=== PATIENT | female | born 1965 | race African-American/Black ===

== ENCOUNTER 2017-09-17 18:28 | Inpatient (IN) | payer MEDICAID, OTHER ==
[~2017-09-17] VITALS: Ht 160 cm; Wt 155.1 kg
[~2017-09-17 18:28] MED LIST: ASPI-1159 PO; COLACE PO; LISI-604 PO; OMEP40CA34 PO; SITA100T11 PO
[2017-09-17 19:15] LABS: CLARITY URINE CLEAR (CLEAR); COLOR URINE YELLOW (YELLOW); KETONES URINE 1+ (NEGATIVE); LEUKOCYTE ESTERASE URINE NEGATIVE (NEGATIVE); NITRITE URINE NEGATIVE (NEGATIVE); OCCULT BLOOD URINE NEGATIVE (NEGATIVE); PROTEIN URINE NEGATIVE (NEGATIVE); SPECIFIC GRAVITY URINE 1.014 (1.005-1.030); UROBILINOGEN URINE 0.2 E.U./dL (0.2-1.0)
[2017-09-17 19:29] LABS: BASOPHILS % 0.5 % (0.0-2.0); EOSINOPHILS % 0.3 % (0.0-5.0); HEMATOCRIT. 41.3 % (36.0-48.0); HEMOGLOBIN. 13.4 g/dL (12.0-16.0); LYMPHOCYTES % 10.9 % (20.0-50.0); MEAN CORPUSCULAR HEMOGLOBIN 25.8 pg (28.0-32.0); MEAN CORPUSCULAR VOLUME 79.7 fL (81.0-99.0); MEAN PLATELET VOLUME 9.8 fl (7.4-10.4); MONOCYTES % 3.3 % (2.0-8.0); PLATELET 301 x1000/uL (130-400); RED BLOOD CELL COUNT 5.18 mill/uL (4.2-5.4); RED CELL DISTRIBUTION WIDTH 13.9 % (11.6-14.6)
[2017-09-17 19:33] LABS: INR 1.1; PROTHROMBIN TIME 11.3 sec (9.4-11.6)
[2017-09-17 19:36] LABS: HCG SCREEN NEGATIVE
[2017-09-17 19:40] LABS: CHLORIDE 98 mEq/L (98-107)
[2017-09-17] MEDS ORDERED: SODIUM CHLORIDE 0.9% 1,000 ML IV ONE (19:50)
[2017-09-17] MEDS ORDERED: MORPHINE SULFATE 4 MG/ML CPJ (NOT FOR IM USE) IV STA (19:50)
[2017-09-17] MEDS ORDERED: ONDANSETRON HCL 4MG/2ML INJ IV STA (19:50)
[2017-09-17] MEDS ORDERED: PANTOPRAZOLE SODIUM 40 MG/VIAL IV ONE (20:00)
[2017-09-17] MEDS ORDERED: IOHEXOL-300 100 ML BOTTLE ONE (21:10)
[2017-09-17] MEDS ORDERED: KETOROLAC 30MG/ML VIAL IV PRN (23:15)
[2017-09-17] MEDS ORDERED: ONDANSETRON HCL 4MG/2ML INJ IV PRN (23:15)
[2017-09-17] MEDS ORDERED: CLONIDINE 0.1MG TABLET PO PRN (23:15)
[2017-09-17] MEDS ORDERED: ENOXAPARIN 40MG/0.4ML SYR SUBCUT SCH (23:15)
[2017-09-17] MEDS ORDERED: MAGNESIUM/ALUMINUM HYDROXIDE/SIMETHICONE 30ML UDC PO PRN (23:15)
[2017-09-18 02:30] VITALS: BP 117/53
[2017-09-18] MEDS: SODIUM CHLORIDE 0.9% 1,000 ML IV SCH ×2 (03:09→17:23)
[2017-09-18 04:00] VITALS: BP 117/53
[2017-09-18] MEDS ORDERED: METF-414 PO (04:48)
[2017-09-18] MEDS ORDERED: GLIP10TA10 PO (04:48)
[2017-09-18] MEDS: PIPERACILLIN/TAZ 3.375G PREMIX 50 ML IV SCH ×3 (05:36→23:04)
[2017-09-18 07:12] LABS: BASOPHILS % 0.5 % (0.0-2.0); EOSINOPHILS % 1.9 % (0.0-5.0); HEMATOCRIT. 36.3 % (36.0-48.0); HEMOGLOBIN. 11.7 g/dL (12.0-16.0); LYMPHOCYTES % 32.1 % (20.0-50.0); MEAN CORPUSCULAR HEMOGLOBIN 25.7 pg (28.0-32.0); MEAN CORPUSCULAR VOLUME 79.5 fL (81.0-99.0); MEAN PLATELET VOLUME 9.7 fl (7.4-10.4); MONOCYTES % 6.4 % (2.0-8.0); NEUTROPHILS % 59.1 % (40.0-76.0); PLATELET 275 x1000/uL (130-400); RED BLOOD CELL COUNT 4.57 mill/uL (4.2-5.4); RED CELL DISTRIBUTION WIDTH 14.1 % (11.6-14.6)
[2017-09-18 07:55] LABS: CHLORIDE 99 mEq/L (98-107)
[2017-09-18 08:00] VITALS: BP 116/50
[2017-09-18 08:06] LABS: CREATINE KINASE 152 IU/L (26-192); CREATINE KINASE MB FRACTION 1.7 ng/mL (0.5-3.6); HDL CHOLESTEROL 33 mg/dL (40-59); LDL CHOLESTEROL 128 mg/dL (5-100)
[2017-09-18] MEDS ORDERED: DEXTROSE 50% WATER 50ML SYRINGE IV PRN (11:30)
[2017-09-18] MEDS: ENOXAPARIN 40MG/0.4ML SYR SUBCUT SCH ×2 (11:33→20:35)
[2017-09-18 12:00] VITALS: BP 119/68
[2017-09-18 12:05] LABS: *AMPHETAMINES SCREEN URINE NEGATIVE (NEGATIVE); *BARBITURATES SCREEN URINE NEGATIVE (NEGATIVE); *BENZODIAZEPINES SCREEN URINE NEGATIVE (NEGATIVE); *COCAINE SCREEN URINE NEGATIVE (NEGATIVE); METHADONE URINE SCREEN NEGATIVE (NEGATIVE); OPIATES URINE SCREEN NEGATIVE (NEGATIVE); PHENCYCLIDINE URINE SCREEN NEGATIVE (NEGATIVE)
[2017-09-18 12:10] LABS: CANNABINOID URINE SCREEN NEGATIVE (NEGATIVE)
[2017-09-18] MEDS: BLOOD SUGAR DIAGNOSTIC STRIP TEST SCH ×3 (12:14→20:35)
[2017-09-18] MEDS: INSULIN LISPRO 100 UNITS/ML SUBCUT SCH ×3 (13:16→21:05)
[2017-09-18 16:00] VITALS: BP 116/53
[2017-09-18 16:55] LABS: CREATINE KINASE 155 IU/L (26-192)
[2017-09-18 16:56] LABS: CREATINE KINASE MB FRACTION 1.2 ng/mL (0.5-3.6)
[2017-09-18] MEDS: ACETAMINOPHEN 325MG TABLET PO PRN ×2 (17:13→22:57)
[2017-09-18 20:00] VITALS: BP 148/69
[2017-09-18] MEDS ORDERED: ATORVASTATIN CALCIUM 10MG TABLET PO SCH (21:00)
[2017-09-18] MEDS: IPRATROPIUM/ALBUTEROL 0.5-3(2.5)MG/3ML NEB INH PRN (21:14)
[2017-09-19] VITALS (7 sets, daily range): BP systolic 117–168; BP diastolic 67–83
[2017-09-19] MEDS: SODIUM CHLORIDE 0.9% 1,000 ML IV SCH (02:30)
[2017-09-19] MEDS: PIPERACILLIN/TAZ 3.375G PREMIX 50 ML IV SCH ×2 (06:33→14:51)
[2017-09-19] MEDS: BLOOD SUGAR DIAGNOSTIC STRIP TEST SCH ×3 (06:41→17:46)
[2017-09-19 06:43] LABS: BASOPHILS % 0.3 % (0.0-2.0); EOSINOPHILS % 2.1 % (0.0-5.0); HEMATOCRIT. 35.3 % (36.0-48.0); HEMOGLOBIN. 11.4 g/dL (12.0-16.0); MEAN CORPUSCULAR HEMOGLOBIN 25.6 pg (28.0-32.0); MEAN CORPUSCULAR VOLUME 79.5 fL (81.0-99.0); MEAN PLATELET VOLUME 9.8 fl (7.4-10.4); MONOCYTES % 6.8 % (2.0-8.0); NEUTROPHILS % 57.8 % (40.0-76.0); PLATELET 259 x1000/uL (130-400); RED BLOOD CELL COUNT 4.44 mill/uL (4.2-5.4)
[2017-09-19 07:10] LABS: CHLORIDE 101 mEq/L (98-107)
[2017-09-19] MEDS: INSULIN LISPRO 100 UNITS/ML SUBCUT SCH ×3 (08:49→17:31)
[2017-09-19] MEDS: ENOXAPARIN 40MG/0.4ML SYR SUBCUT SCH (08:52)
[2017-09-19] MEDS: IPRATROPIUM/ALBUTEROL 0.5-3(2.5)MG/3ML NEB INH PRN (17:57)
== END 2017-09-19 19:19 | disposition home or self-care (01) | DRG 249 ==
LOC: ER 18:28 → 6EST 22:54 → CANRESERV 23:19 → ENRESERV 23:19 → EDBEDREQSVC 23:25 → ENRESERV 09-18 00:01
PROVIDERS: ADMIT Internal Medicine; ATTEND Internal Medicine
DX: A08.4 Viral intestinal infection, unspecified (principal); Z68.44 Body mass index [BMI] 60.0-69.9, adult; I10 Essential (primary) hypertension; E66.01 Morbid (severe) obesity due to excess calories; E78.00 Pure hypercholesterolemia, unspecified; K43.9 Ventral hernia without obstruction or gangrene; E11.9 Type 2 diabetes mellitus without complications; J45.909 Unspecified asthma, uncomplicated; Z79.82 Long term (current) use of aspirin; Z79.84 Long term (current) use of oral hypoglycemic drugs; Z79.899 Other long term (current) drug therapy; Z90.49 Acquired absence of other specified parts of digestive tract; Z88.8 Allergy status to other drugs, medicaments and biological substances; Z98.891 History of uterine scar from previous surgery
CPT/HCPCS: 36415; 74177; 78227; 80048; 80061; 80305; 82550; 82553; 82962; 83605; 84443; 84484; 84703; 93005; 93970; 94640; 94664; 96361; 96374; 96375; 99285; A9537; C1893; C9113; J1650; J1815; J1885; J2270; J2405; J2543; J7030; J7620; Q9967

== ENCOUNTER 2018-03-14 01:41 | Emergency (ER) | payer OTHER ==
[~2018-03-14] VITALS: Ht 160 cm; Wt 172.7 kg
[~2018-03-14 01:41] MED LIST changes: +GLIP10TA10 PO; +METF500T6 PO
[2018-03-14] MEDS ORDERED: METOCLOPRAMIDE HCL 10MG/2ML VIAL IV STA (02:23)
[2018-03-14] MEDS ORDERED: KETOROLAC 30MG/ML VIAL IV STA (02:23)
[2018-03-14 02:57] LABS: BASOPHILS % 0.9 % (0.0-2.0); EOSINOPHILS % 0.4 % (0.0-5.0); HEMATOCRIT. 44.5 % (36.0-48.0); HEMOGLOBIN. 14.4 g/dL (12.0-16.0); LYMPHOCYTES % 15.6 % (20.0-50.0); MEAN CORPUSCULAR VOLUME 80.2 fL (81.0-99.0); MEAN PLATELET VOLUME 9.9 fl (7.4-10.4); MONOCYTES % 3.2 % (2.0-8.0); NEUTROPHILS % 79.9 % (40.0-76.0); PLATELET 283 x1000/uL (130-400); RED BLOOD CELL COUNT 5.54 mill/uL (4.2-5.4)
[2018-03-14 03:05] LABS: CHLORIDE 97 mEq/L (98-107); PROTHROMBIN TIME 10.5 sec (9.1-11.1)
[2018-03-14 03:14] LABS: BETA HYDROXYBUTYRATE 0.7 mMol/L (0.0-0.3)
[2018-03-14 03:52] LABS: CLARITY URINE CLEAR (CLEAR); COLOR URINE YELLOW (YELLOW); KETONES URINE 2+ (NEGATIVE); LEUKOCYTE ESTERASE URINE NEGATIVE (NEGATIVE); NITRITE URINE NEGATIVE (NEGATIVE); OCCULT BLOOD URINE NEGATIVE (NEGATIVE); PH URINE 6.5 (4.5-8.0); PROTEIN URINE TRACE (NEGATIVE); SPECIFIC GRAVITY URINE 1.037 (1.005-1.030); UROBILINOGEN URINE 0.2 E.U./dL (0.2-1.0)
[2018-03-14] MEDS ORDERED: SODIUM CHLORIDE 0.9% 1,000 ML IV NR (04:45)
[2018-03-14] MEDS: INSULIN LISPRO 100 UNITS/ML SUBCUT NR ×2 (05:34→05:45)
[2018-03-14] MEDS ORDERED: IOHEXOL-300 100 ML BOTTLE ONE (07:42)
[2018-03-14 08:15] VITALS: BP 177/87
== END 2018-03-14 08:21 | disposition home or self-care (01) ==
LOC: ER 02:00 → CANBEDREQ 17:34
DX: E11.43 Type 2 diabetes mellitus with diabetic autonomic (poly)neuropathy (principal); K31.84 Gastroparesis; E11.65 Type 2 diabetes mellitus with hyperglycemia; K42.9 Umbilical hernia without obstruction or gangrene; Z79.4 Long term (current) use of insulin; E66.01 Morbid (severe) obesity due to excess calories; Z68.44 Body mass index [BMI] 60.0-69.9, adult; Z88.8 Allergy status to other drugs, medicaments and biological substances; Z79.899 Other long term (current) drug therapy
CPT/HCPCS: 36415; 74177; 80053; 81003; 82010; 82962; 83690; 85025; 85610; 93005; 96361; 96372; 96374; 96375; 99285; J1815; J1885; J2765; Q9967; Z7610

== ENCOUNTER 2018-12-17 23:42 | Emergency (ER) | payer OTHER ==
[~2018-12-17] VITALS: Ht 160 cm; Wt 172.7 kg
[~2018-12-17 23:42] MED LIST changes: +METF-414 PO; -METF500T6 PO
[2018-12-18] MEDS ORDERED: KETOROLAC 30MG/ML VIAL IV STA (01:56)
[2018-12-18] MEDS ORDERED: ENALAPRIL 2.5MG/2ML VIAL 2ML IV ONE (02:00)
[2018-12-18 02:14] LABS: EOSINOPHILS % 1.7 % (0.0-5.0); HEMATOCRIT. 44.4 % (36.0-48.0); HEMOGLOBIN. 14.8 g/dL (12.0-16.0); MEAN CORPUSCULAR HEMOGLOBIN 26.9 pg (28.0-32.0); MEAN CORPUSCULAR VOLUME 80.6 fL (81.0-99.0); MEAN PLATELET VOLUME 10.9 fl (7.4-10.4); MONOCYTES % 4.1 % (2.0-8.0); NEUTROPHILS % 64.2 % (40.0-76.0); PLATELET 267 x1000/uL (130-400); RED BLOOD CELL COUNT 5.51 mill/uL (4.2-5.4); RED CELL DISTRIBUTION WIDTH 13.6 % (11.6-14.6)
[2018-12-18 02:19] LABS: CHLORIDE 99 mEq/L (98-107)
[2018-12-18 02:27] LABS: BETA HYDROXYBUTYRATE 0.3 mMol/L (0.0-0.3)
[2018-12-18] MEDS ORDERED: LORAZEPAM 2MG/ML CPJ IV ONE (06:00)
[2018-12-18 10:41] VITALS: BP 168/95
== END 2018-12-18 10:45 | disposition home or self-care (01) ==
LOC: ER 23:42
DX: I10 Essential (primary) hypertension (principal); M54.2 Cervicalgia; M25.511 Pain in right shoulder
CPT/HCPCS: 36415; 71045; 72125; 80053; 81025; 82010; 82962; 84484; 85025; 93005; 96374; 96375; 99284; J1885; J2060; J3490

== ENCOUNTER 2018-12-29 00:39 | Emergency (ER) | payer OTHER ==
[~2018-12-29] VITALS: Ht 160 cm; Wt 172.7 kg
[2018-12-29] MEDS ORDERED: IBUPROFEN 600MG TABLET PO ONE (02:30)
[2018-12-29 03:28] VITALS: BP 178/90
[2018-12-29] MEDS ORDERED: PENICILLIN V POTASSIUM 250MG TABLET PO SCH (06:00)
== END 2018-12-29 03:28 | disposition home or self-care (01) ==
LOC: ER 00:39
DX: K04.7 Periapical abscess without sinus (principal); I10 Essential (primary) hypertension
CPT/HCPCS: 99283

== ENCOUNTER 2023-04-20 02:46 | Emergency (ER) | payer OTHER ==
[~2023-04-20] VITALS: Ht 160 cm; Wt 150.0 kg
[~2023-04-20 02:46] MED LIST changes: +ALBU05 NEB; -ASPI-1159 PO; +ASPI-1497 MT; +ASPI-1497 PO; +BLOO1KIT74 TP; +CLON0.1T PO; +DILT60TA3 MT; +FAMO-135 PO; +FLUT1AER INH; +INSHUMSS SUBCUT; +INSU100I28 SQ; +LEVO500T2 MT; -LISI-604 PO; +LORA10CA MT; +MONT-46 MT; +OMEP40CA20 PO; -OMEP40CA34 PO; +P50 PO
[2023-04-20 02:58] VITALS: BP 170/85; PULSE 101; RESP 18; O2SAT 100
[2023-04-20 03:40] LABS: BASOPHILS % 0.7 % (0.0-2.0); EOSINOPHILS % 1.3 % (0.0-5.0); HEMATOCRIT. 41.5 % (36.0-48.0); HEMOGLOBIN. 13.6 g/dL (12.0-16.0); LYMPHOCYTES % 19.6 % (20.0-50.0); MEAN CORPUSCULAR HEMOGLOBIN 26.5 pg (28.0-32.0); MEAN CORPUSCULAR HGB CONC 32.8 g/dL (31.0-37.0); MEAN CORPUSCULAR VOLUME 80.7 fL (81.0-99.0); MEAN PLATELET VOLUME 10.1 fl (7.4-10.4); MONOCYTES % 4.4 % (2.0-8.0); PLATELET 241 x1000/uL (130-400); RED BLOOD CELL COUNT 5.14 mill/uL (4.2-5.4); RED CELL DISTRIBUTION WIDTH 13.4 % (11.6-14.6); WHITE BLOOD COUNT 10.4 x1000/uL (4.5-11.0)
[2023-04-20 03:49] LABS: PROTHROMBIN TIME 11.2 sec (9.6-11.0)
[2023-04-20 03:57] LABS: CHLORIDE 101 mEq/L (98-107); HCG SCREEN NEGATIVE; INDEX HEMOLYSI 1 (1-3); INDEX ICTERIC 1 (1-4); INDEX LIPEMIC 1 (1-3); POTASSIUM 3.7 mEq/L (3.5-5.1); SODIUM 134 mEq/L (136-145)
[2023-04-20 04:06] LABS: ALANINE AMINOTRANSFERASE 25 IU/L (13-61); ALBUMIN 3.4 g/dL (3.4-5.0); ASPARTATE AMINOTRANSFERASE 17 IU/L (15-37); BILIRUBIN TOTAL 1.1 mg/dL (0.1-1.0); CALCIUM 8.5 mg/dL (8.5-10.1); CARBON DIOXIDE 30 mEq/L (21-32); CREATININE 0.8 mg/dL (0.6-1.3); ETHANOL BLOOD < 10 mg/dL (<10); GLUCOSE 264 mg/dL (70-105); PROTEIN TOTAL 7.8 g/dL (6.0-8.3); UREA NITROGEN BLOOD 12 mg/dL (7-21)
[2023-04-20 04:21] LABS: CLARITY URINE CLOUDY (CLEAR); COLOR URINE YELLOW (YELLOW); GLUCOSE URINE NEGATIVE (NEGATIVE); KETONES URINE 1+ (NEGATIVE); LEUKOCYTE ESTERASE URINE 1+ (NEGATIVE); NITRITE URINE NEGATIVE (NEGATIVE); OCCULT BLOOD URINE NEGATIVE (NEGATIVE); PROTEIN URINE TRACE (NEGATIVE); SPECIFIC GRAVITY URINE 1.022 (1.005-1.030)
[2023-04-20 04:44] LABS: *AMPHETAMINES SCREEN URINE NEGATIVE (NEGATIVE); *BARBITURATES SCREEN URINE NEGATIVE (NEGATIVE); *BENZODIAZEPINES SCREEN URINE NEGATIVE (NEGATIVE); *COCAINE SCREEN URINE NEGATIVE (NEGATIVE); CANNABINOID URINE SCREEN NEGATIVE (NEGATIVE); ECSTASY MDMA SCREEN URINE NEGATIVE (NEGATIVE); METHADONE URINE SCREEN NEGATIVE (NEGATIVE); OPIATES URINE SCREEN NEGATIVE (NEGATIVE); PHENCYCLIDINE URINE SCREEN NEGATIVE (NEGATIVE)
[2023-04-20 04:55] LABS: BACTERIA URINE 1+; CALCIUM OXALATE CRYSTALS URINE 2+ /lpf; RBC URINE 0-2 /hpf (0-2); SQUAMOUS EPITHELIAL CELL URINE 1+ /lpf (RARE/1+)
[2023-04-20] MEDS ORDERED: CEFTRIAXONE 1GM PREMIX 50 ML IV NR (06:30)
[2023-04-20] MEDS ORDERED: ACETAMINOPHEN 500MG TABLET PO ONE (07:00)
[2023-04-20] MEDS ORDERED: MAGNESIUM/ALUMINUM HYDROXIDE/SIMETHICONE 30ML UDC PO ONE (07:00)
[2023-04-20] MEDS ORDERED: FAMOTIDINE 20MG TABLET PO ONE (07:00)
[2023-04-20] MEDS ORDERED: DICYCLOMINE 10 MG/5 ML ORAL SYR PO ONE (07:00)
[2023-04-20] MEDS ORDERED: MORPHINE SULFATE 4 MG/ML CPJ (NOT FOR IM USE) IV ONE (08:15)
[2023-04-20] MEDS ORDERED: DIPHENHYDRAMINE 25MG CAPSULE PO ONE (08:15)
[2023-04-20] MEDS ORDERED: CEPH500C2 MT (08:59)
[2023-04-20] MEDS ORDERED: FAMOTIDINE 20MG TABLET PO NR (09:51)
[2023-04-20] MEDS ORDERED: MAGNESIUM/ALUMINUM HYDROXIDE/SIMETHICONE 30ML UDC PO NR (09:51)
[2023-04-20] MEDS ORDERED: DIPHENHYDRAMINE 25MG CAPSULE PO NR (09:52)
[2023-04-20] MEDS ORDERED: DICYCLOMINE 10 MG/5 ML ORAL SYR PO NR (09:53)
[2023-04-20 09:54] VITALS: TEMP 98.3
[2023-04-20] MEDS ORDERED: ACETAMINOPHEN 500MG TABLET PO NR (09:54)
== END 2023-04-20 10:23 | disposition home or self-care (01) ==
LOC: ER 02:46 → EDBEDREQ 08:42 → CANBEDREQ 09:53 → ER 10:23
DX: N39.0 Urinary tract infection, site not specified (principal); E11.9 Type 2 diabetes mellitus without complications; J45.909 Unspecified asthma, uncomplicated; I10 Essential (primary) hypertension; Z79.899 Other long term (current) drug therapy; Z88.5 Allergy status to narcotic agent; Z90.49 Acquired absence of other specified parts of digestive tract; Z98.890 Other specified postprocedural states
CPT/HCPCS: 80053; 80305; 81003; 80320; 84703; 83690; 85025; 85610; 36415; 74176; 99284; Q0163; G0480